=== PATIENT | female | born 1965 | race Caucasian/White ===

== ENCOUNTER 2016-05-18 17:24 | Observation (INO) | payer BC ==
[2016-05-18] MEDS ORDERED: NS 0.9% 1000 ML* 1,000 ML IV ONE (17:42)
[2016-05-18] MEDS ORDERED: Nitroglycerin TAB 0.4 MG* 0.4 MG TAB SL ONE (18:53)
[2016-05-18 20:43] LABS: Hematocrit 40 % (35-47); Hemoglobin 13.7 g/dl (12.0-16.0); Mean Corpuscular HGB Conc 34 g/dl (31-36); Mean Corpuscular Hemoglobin 31 pg (27-31); Mean Corpuscular Volume 92 fL (80-97); Mean Platelet Volume 9 um3 (7.4-10.4); Red Blood Count 4.38 10^6/ul (4.0-5.4); Red Cell Distribution Width 13 % (10.5-15); White Blood Count 7.2 10^3/ul (3.5-10.8)
[2016-05-18 20:53] LABS: Add Diff/Slide Review? Slide Review Added; Comments Flag Yes
[2016-05-18 20:58] LABS: Albumin 4.1 g/dL (3.2-5.2); BUN/Creatinine Ratio 18.9 (8-20); Calcium 9.5 mg/dL (8.6-10.3); EGFR African American 79.1 (>60); EGFR Non-African American 61.5 (>60); Globulin 2.9 g/dL (2-4); Potassium 3.4 mmol/L (3.5-5.0); Total Bilirubin 0.3 mg/dL (0.2-1.0)
[2016-05-18] MEDS ORDERED: Iohexol 350* (CONTRAST) 500 ML MDV IV ONE (21:20)
--- NOTE | 2016-05-18 21:25 | ED ---
Jessie Croft SooYoung, scribed for Lucas Gardner MD on 05/18/16 at 1848 . HPI Chest Pain - HPI Summary HPI Summary: A 51 y/o F presents to ED with c/o midline CP onset this AM. Radiates to back. Associated sx: SOB, dizziness. Denies: nausea, diaphoresis, pedal edema. Pt took 4 - 325mg Aspiring today.Describes the pain as a pressure, she states she' s never had a pain like this previously. Currently in ED, she rates pain as 5 to 6 out of 10. Aggravating factors: deep breaths. Alleviating factors: rest. Eating does not impact the pain. Believes her last stress test was 4 years ago. - History of Current Complaint Chief Complaint: EDChestPainROMI Time Seen by Provider: 05/18/16 18:39 Hx Obtained From: Patient Onset/Duration: Started Hours Ago, Still Present Timing: Constant, Lasting Hours Initial Severity: Moderate Current Severity: Moderate Pain Intensity: 7 - at onset Pain Scale Used: 0-10 Numeric Chest Pain Location: Mid Sternal Chest Pain Radiates: Yes Chest Pain Radiates To:: Back Character: Pressure/Squeezing Aggravating Factor(s): Deep Breaths Alleviating Factor(s): Rest Associated Signs and Symptoms: Positive: Dizziness, Shortness of Breath. Negative: Swelling, Diaphoresis, Nausea - Allergy/Home Medications Allergies/Adverse Reactions: Allergies Allergy/AdvReac Type Severity Reaction Status Date / Time No Known Allergies Allergy Verified 05/18/16 17:28 PMH/Surg Hx/FS Hx/Imm Hx Previously Healthy: Yes Sensory History: Denies: Hx Deafness Infectious Disease History: No Infectious Disease History: Denies: Traveled Outside the [place] in Last 30 Days - Family History Known Family History: Positive: Cardiac Disease, Hypertension - aunts Negative: Diabetes - Social History Occupation: Employed Full-time Lives: Alone Review of Systems Negative: Skin Diaphoresis Positive: Chest Pain Positive: Shortness Of Breath Negative: Nausea Negative: Edema Skin: Negative Neurological: Other - pos: dizzyness Psychological: Normal All Other Systems Reviewed And Are Negative: Yes Physical Exam - Summary Physical Exam Summary: Jasmin: well-appearing, no pain distress Skin: warm, skin color reflects adequate perfusion, dry Head/Face: nml head/face inspection Eyes: EOMI, REGINALDO ENT: nml Neck: supple, non-tender Resp: CTA, breath sounds present Cardio: RRR Abd: nontender, soft Bowel: present Musc: nml, strength/ROM intact Neuro: nml, sensory/motor intact, A&O x 3 Psych: affect/mood appropriate Triage Information Reviewed: Yes Vital Signs On Initial Exam: Initial Vitals Temp Pulse Resp BP Pulse Ox 97.7 F 91 16 147/90 100 05/18/16 17:28 05/18/16 17:28 05/18/16 17:28 05/18/16 17:28 05/18/16 17:28 Vital Signs Reviewed: Yes Diagnostics - Vital Signs Vital Signs Temp Pulse Resp BP Pulse Ox 05/18/16 18:23 97.7 F 75 16 131/81 100 05/18/16 17:28 97.7 F 91 16 147/90 100 - Laboratory Lab Results: Lab Results 05/18/16 05/18/16 05/18/16 Range/Units 20:30 20:30 20:30 WBC 7.2 (3.5-10.8) 10^3/ul RBC 4.38 (4.0-5.4) 10^6/ul Hgb 13.7 (12.0-16.0) g/dl Hct 40 (35-47) % MCV 92 (80-97) fL MCH 31 (27-31) pg MCHC 34 (31-36) g/dl RDW 13 (10.5-15) % Plt Count 253 (150-450) 10^3/ul MPV 9 (7.4-10.4) um3 Neut % (Auto) 56.2 (38-83) % Lymph % (Auto) 33.6 (25-47) % Harnett % (Auto) 6.8 (1-9) % Eos % (Auto) 1.0 (0-6) % Baso % (Auto) 2.4 H (0-2) % Absolute Neuts (auto) 4.0 (1.5-7.7) 10^3/ul Absolute Lymphs (auto) 2.4 (1.0-4.8) 10^3/ul Absolute Monos (auto) 0.5 (0-0.8) 10^3/ul Absolute Eos (auto) 0.1 (0-0.6) 10^3/ul Absolute Basos (auto) 0.2 (0-0.2) 10^3/ul Absolute Nucleated RBC 0.01 10^3/ul Nucleated RBC % 0.1 Sodium 135 (133-145) mmol/L Potassium 3.4 L (3.5-5.0) mmol/L Chloride 101 (101-111) mmol/L Carbon Dioxide 26 (22-32) mmol/L Anion Gap 8 (2-11) mmol/L BUN 18 (6-24) mg/dL Creatinine 0.95 (0.51-0.95) mg/dL Est GFR ( Amer) 79.1 (>60) Est GFR (Non-Af Amer) 61.5 (>60) BUN/Creatinine Ratio 18.9 (8-20) Glucose 101 H (70-100) mg/dL Lactic Acid 0.8 (0.5-2.0) mmol/L Calcium 9.5 (8.6-10.3) mg/dL Total Bilirubin 0.30 (0.2-1.0) mg/dL AST 17 (13-39) U/L ALT 18 (7-52) U/L Alkaline Phosphatase 65 (34-104) U/L Troponin I 0.00 (<0.04) ng/mL Total Protein 7.0 (6.4-8.9) g/dL Albumin 4.1 (3.2-5.2) g/dL Globulin 2.9 (2-4) g/dL Albumin/Globulin Ratio 1.4 (1-3) Lipase 36 (11.0-82.0) U/L Result Diagrams: 05/18/16 20:30 05/18/16 20:30 Lab Statement: Any lab studies that have been ordered have been reviewed, and results considered in the medical decision making process. - EKG 1 Cardiac Rate: NL EKG Rhythm: Sinus Rhythm - [address] Segment: Normal Ectopy: None Chest Pain Course/Dx - Course Assessment/Plan: DISPOSITION PENDING AT SHIFT CHANGE. - Diagnoses Provider Diagnoses: Chest pain Discharge - Discharge Plan Condition: Stable Disposition: OTHER Discharge Disposition Comment: C Referrals: Non Staff,Doctor [Primary Care Provider] - The documentation as recorded by the Jessie powell SooYoung accurately reflects the service I personally performed and the decisions made by me, Lucas Gardner MD.
[2016-05-18 21:31] LABS: Hypochromasia 1+; Macrocytosis 2+
--- NOTE | 2016-05-18 22:01 | RAD ---
Indication: Pleuritic chest pain. Contrast: Administered 67.0 ml of OMNIPAQUE 350 mgi/ml CTA of the chest was performed after IV contrast administration. Coronal and sagittal reconstructed images were obtained. The pulmonary arterial tree is well opacified. No evidence of filling defects are noted to suggest pulmonary embolus. Inferior thyroid lobes are unremarkable. No mediastinal or hilar adenopathy is noted. The heart demonstrates no pericardial effusion. Trachea and major bronchi appear patent. Lung duong demonstrate no evidence of pleural fluid, nodules or masses. No alveolar consolidation is noted. The visualized abdominal organs are unremarkable. The aortic arch demonstrates no evidence of aortic dissection or aneurysmal dilatation of the aorta. IMPRESSION: No evidence of pulmonary embolus is noted.
[2016-05-18] MEDS ORDERED: Aspirin TAB* 325 MG PO ONE (22:31)
--- NOTE | 2016-05-18 23:08 | ED ---
Patrice Croft Anna, scribed for Shanon Linder MD on 05/18/16 at 1749 . Progress - Progress Note Progress Note: Patient is a 51 y/o female coming to [facility] presenting with mid-sternal CP that began this morning at 0600. The pain radiates to her back. Additionally feels SOB because of the pain. She has had CP before related to anxiety, but this pain is not similar. She has taken four Aspirin today. No previous W[place], stents, respiratory history. FHx of W[place] in father and CVA in mother. History of HLD. Denies history of DVT or PE in herself or family. Denies recent travel and calf pain or tenderness. Course/Dx - Diagnoses Provider Diagnoses: Chest pain The documentation as recorded by the Patrice powell Anna accurately reflects the service I personally performed and the decisions made by me, Shanon Linder MD.
[2016-05-18] MEDS ORDERED: Acetaminophen TAB* 325 MG PO PRN (23:24)
[2016-05-18] MEDS ORDERED: Ondansetron INJ* 2 MG/ML VIAL IV PRN (23:24)
[2016-05-18] MEDS ORDERED: Ketorolac INJ* 30 MG/ML 1 ML VIAL ONE (23:24)
[2016-05-18] MEDS ORDERED: Ketorolac INJ* 30 MG/ML 1 ML VIAL IV PUSH ONE (23:24)
[2016-05-18] MEDS ORDERED: NS 0.9% 1000 ML* 1,000 ML IV SCH (23:30)
[2016-05-18] MEDS ORDERED: Potassium Chlor TAB* 20 MEQ TAB.ER PO ONE (23:39)
--- NOTE | 2016-05-18 23:50 | ED ---
douglas Croft Timothy, harshed for Trino Morel on 05/18/16 at 2234 . Progress - Progress Note Progress Note: Patient is a 51 y/o female coming to [facility] presenting with mid-sternal CP that began this morning at 0600. The pain radiates to her back. Additionally feels SOB because of the pain. She has had CP before related to anxiety, but this pain is not similar. She has taken four Aspirin today. No previous WV, stents, respiratory history. FHx of W[place] in father and CVA in mother. History of HLD. Denies history of DVT or PE in herself or family. Denies recent travel and calf pain or tenderness. Her CT Chest was negative, but she is still complaining of pain. After discussion with Dr. Sheikh, she will be admitted for stress test and further evaluation. Course/Dx - Course Course Of Treatment: Suellen Hicks is a 51 yo female presenting to [facility] with CP. Her CT chest/thorax was negative, but she still complains of CP. After discussion with Dr. Sheikh, she will be admoitted for further evaluation and possible stress test. - Diagnoses Provider Diagnoses: Chest pain - Provider Notifications Discussed Care Of Patient With: 2230 - Dr. Sheikh (hospitalist) - discussed Pt condition, agrees to admit Pt. Instructed by Provider To: Admit As Inpatient The documentation as recorded by the douglas powell Timothy accurately reflects the service I personally performed and the decisions made by me, Trino Morel.
[2016-05-18 23:55] LABS: C Reactive Protein 6.15 mg/L (< 5.00)
[2016-05-19 00:38] LABS: Erythrocyte Sed Rate 22 mm/Hr (0-30)
--- NOTE | 2016-05-19 00:43 | HP ---
HISTORY AND PHYSICAL: DATE OF ADMISSION: 05/18/16 PRIMARY CARE PROVIDER: Dr. Dahlia Zavala from [facility] in [place], [place]. ATTENDING PHYSICIAN: Kevan Sheikh MD * (dictated by Papa Ruano NP) CHIEF COMPLAINT: Chest pain. HISTORY OF PRESENT ILLNESS: Ms. Hicks is a 51-year-old female patient who has a history of hyperlipidemia and GERD, who takes Nexium only, who comes in today, states that she woke up this morning, she started having some pain in the center of her chest, and she went to work. She thought maybe it was related to anxiety but when she was at work, she described that she was having pain in the center of her chest, rather sharp pain radiating into her back, worse when taking a deep breath. It was constant and got progressively worse. She was at work and felt that she should be evaluated because she had a family history of heart disease. She does state that about 2 weeks ago, she did have recent URI symptoms. Her had cold symptoms, and she has had cold symptoms, cough, runny nose, no sore throat. She said these symptoms have gotten better. She denied having any fevers. There has been no abdominal pain. She had no associated symptoms of shortness of breath, nausea, diaphoresis, or radiation of the chest discomfort, and it was nonpositional. She was concerned, came to the ER, was evaluated. There was concern for acute coronary syndrome. Hospitalist service was asked to evaluate for admission. PAST MEDICAL HISTORY: Significant for: 1. Hyperlipidemia. 2. GERD. PAST SURGICAL HISTORY: She has had an L5 laminectomy. MEDICATIONS: Home medications include Nexium 40 mg p.o. daily. ALLERGIES: No known drug allergies. FAMILY HISTORY: Her mother had TIA, AFib. Father had a history of [place]. SOCIAL HISTORY: The patient is a nonsmoker. She has 2 glasses of wine daily. Surrogate decision maker is her significant other, [place]. REVIEW OF SYSTEMS: There is no documented fever. She denied having any significant weight change. There was no double vision. There is no ear discharge. Denies having any rhinorrhea. There is no sore throat. No thyroid enlargement. She did admit to chest pain from my HPI. There is no shortness of breath. No orthopnea, nocturnal dyspnea. There is no abdominal pain. No nausea, no vomiting. No dysuria, no frequency. No loss of consciousness. No pruritus and no skin ulcerations. Review of 14 systems completed, all others negative. PHYSICAL EXAMINATION GENERAL: At this time, Ms. Hicks is a 51-year-old female patient. She appears well nourished, well developed. She is sitting in the ER stretcher, does not appear to be in any acute distress. VITAL SIGNS: Reveal blood pressure 124/73 with a pulse of 77, respirations 18, O2 sat 95%, temperature 97.9. HEENT: Head is atraumatic, normocephalic. Eyes: EOMs intact. Sclerae anicteric, not pale. Throat: Oral mucosa appears to be moist. No oropharyngeal erythema. NECK: Supple. HEART: Heart sounds, S1, S2. Regular rate and rhythm. No murmurs, rubs, or gallops. LUNGS: Clear to auscultation bilaterally. No wheezes, rales, or rhonchi. ABDOMEN: Soft, flat, nontender. Bowel sounds present. EXTREMITIES: Pulses 2+ throughout. She was able to move all 4 extremities with 5/5 strength. NEUROLOGIC: The patient is awake, alert, oriented x3. Tongue midline. Washerette Machine Operator equal. No gross focal deficits. SKIN: Grossly intact. DIAGNOSTIC STUDIES/LAB DATA: Today revealed a WBC of 7.2, RBC of 4.38, hemoglobin 13.7, hematocrit of 40, platelet count 283. Sodium was 135, potassium was 3.4, chloride of 101, bicarb of 26, BUN 18, creatinine 0.95, glucose of 101, lactate of 0.8, calcium 9.5. Total bili 0.3, AST 17, ALT 18, alk phos 65. Troponin 0. CRP pending. Albumin 4.1. She had a chest thorax CTA, which revealed no evidence of pulmonary embolism is noted. EKG showed a normal sinus rhythm, rate of 60, no ST elevations or T-wave inversions were noted. No previous for comparison. Old medical records were reviewed. ASSESSMENT AND PLAN: Ms. Hicks is a 51-year-old female patient, coming into the ER today with complaints of chest pain. Hospitalist service was asked to evaluate for admission, as there was concern for acute coronary syndrome. She will be admitted under observation status for: 1. Chest pain. Again, the story is atypical for acute coronary syndrome. She does have risk factors, the most likely culprit is this is probably costochondritis or pleurisy. Given her family history, I think it is warranted to go ahead and check her troponins, check EKG in the morning. In addition to this, get lipids and A1c. Started her on aspirin. She got a full dose down here. Also, we will check a stress test in the morning as well and we will continue to follow. Should acute coronary syndrome be ruled out with stress test, then most likely, we will treat her chest pain with NSAIDs in the form of ibuprofen or naproxen, as this would be the treatment for costochondritis or pleurisy. 2. Hyperlipidemia. We will check lipid panel in the morning. 3. Gastroesophageal reflux disease. Continue PPI therapy. 4. DVT prophylaxis. She is at moderate risk. We will place her on heparin subcu. 5. Code status. Full code. 6. Fluids, electrolytes, nutrition. She can have a heart healthy diet, then n.p.o. after midnight. TIME SPENT: On the admission was 60 minutes, greater than half the time was spent [id number] with the patient, obtaining my history and physical, the other half time spent going over the plan of care with the patient, implementing plan of care. I did discuss the plan of care with my attending, Dr. Sheikh; he is in agreement. PAPA RUANO NP CC: Dr. Dahlia Zavala, [place], [place] [id number]/[facility] #: [id number] MTDD
[2016-05-19 05:18] LABS: Hematocrit 37 % (35-47); Hemoglobin 12.7 g/dl (12.0-16.0); Mean Corpuscular HGB Conc 34 g/dl (31-36); Mean Corpuscular Hemoglobin 31 pg (27-31); Mean Corpuscular Volume 92 fL (80-97); Mean Platelet Volume 9 um3 (7.4-10.4); Red Blood Count 4.07 10^6/ul (4.0-5.4); Red Cell Distribution Width 13 % (10.5-15); White Blood Count 5.5 10^3/ul (3.5-10.8)
[2016-05-19 05:31] LABS: BUN/Creatinine Ratio 14.7 (8-20); Calcium 8.5 mg/dL (8.6-10.3); EGFR African American 79.1 (>60); EGFR Non-African American 61.5 (>60); HDL Cholesterol 47.9 mg/dL
[2016-05-19] MEDS: Heparin VIAL(*) 5000 UNITS/ML VIAL (FIVE THOUSAND) SUBCUT SCH ×2 (05:34→16:19)
[2016-05-19] MEDS ORDERED: Aspirin Low Dose CHEW TAB* 81 MG PO SCH (09:00)
[2016-05-19] MEDS ORDERED: Omeprazole CAP* 20 MG PO SCH (09:00)
--- NOTE | 2016-05-19 14:27 | RAD ---
Edited for charges. INDICATION: Chest pain COMPARISON: None TECHNIQUE: A single day SPECT protocol was utilized. Rest images were acquired following the intravenous injection of 10.1 millicuries of technetium 99m tetrofosmin. Exercise stress images were acquired following the intravenous administration of 25.1 millicuries of technetium 99m tetrofosmin. The patient was exercised to a peak heart rate of 142 which is 85% of age predicted maximum. FINDINGS: There are no defects of the stress-induced or fixed nature. The cardiac chamber size is normal. There are no wall motion abnormalities. The ejection fraction is calculated at 79 percent during during stress. IMPRESSION: NO DEFECTS OR STRESS-INDUCED OR FIXED NATURE. ASSESSMENT: LOW-RISK Based on imaging criteria from ACC/AHA 2002 Guideline Update for the Management of Patients With Chronic Stable Angina Table 23. Noninvasive Risk Stratification. MTDD
[2016-05-19 16:24] VITALS: BP 136/87
--- NOTE | 2016-05-20 03:28 | DS ---
DISCHARGE SUMMARY: DATE OF ADMISSION: 05/18/16 DATE OF DISCHARGE: 05/19/16 DISCHARGE DIAGNOSES: 1. Chest pain, acute coronary syndrome ruled out. 2. Viral respiratory infection. SECONDARY DIAGNOSES: 1. Hyperlipidemia. 2. Gastroesophageal reflux disease. MEDICATION LIST: Nexium 40 mg p.o. daily. NEW MEDICATIONS: 1. Guaifenesin ER 600 mg p.o. twice a day for 5 days. 2. Ibuprofen 600 mg p.o. q.8 hours for 5 days. HOSPITAL COURSE: Ms. Hicks is a 51-year-old female lady with a past medical history as stated above that presented to the emergency room with complaints of chest pain that was described as a discomfort when taking a deep breath. She has recently had an upper respiratory infection and her also had similar symptoms but she felt she was getting a little better but still had some moist cough with no expectoration and feeling of "raspy" breath. No fever , chills, or other complaints. She called her PCP and was advised to come to the emergency room for further evaluation as she has a history of hyperlipidemia and family history of coronary artery disease. For more details about her presentation, I refer you to her history and physical. EKG showed no acute changes. A CTA of the chest showed no evidence of pulmonary embolus. There was no infiltrate or pleural fluid, nodules or masses. The patient underwent a nuclear medicine stress test that showed a calculated ejection fraction of 79% during stress and there was no defect of a stress- induced or fixed nature. The impression is that the patient probably has a viral respiratory infection. She is going to receive guaifenesin and ibuprofen for symptomatic treatment and she will follow up with her primary care provider next week. The patient was advised to return to the emergency room if her symptoms persist or worsened. PHYSICAL EXAMINATION: Vital Signs: Temperature 98.1, heart rate is 75, respiratory rate 16, oxygen saturation 97% on room air, blood pressure is 116/ 75. General: The patient is a pleasant lady, sitting up in bed, in no acute distress. CVS: Normal S1, S2. Regular rate and rhythm. Chest: Breath sounds bilaterally coarse, but no added sounds. Extremities: No edema. Neuro: She is alert, awake, and oriented x3. Able to move all 4 extremities. DIET: Regular diet. ACTIVITIES: As tolerated. DISPOSITION: To home. STATUS WHILE IN THE HOSPITAL: Observation. If you need more information, please feel free to call me at [phone] or please obtain the full medical records. TIME SPENT: Approximately 45 minutes were spent to complete this discharge. [id number]/[facility] #: [id number] TOBIN
== END 2016-05-19 16:43 | disposition home or self-care (01) ==
LOC: ED 17:24 → MEDTELE 23:20
PROVIDERS: ADMIT Internal Medicine; ATTEND Internal Medicine
DX: R07.9 Chest pain, unspecified (principal); E78.5 Hyperlipidemia, unspecified; K21.9 Gastro-esophageal reflux disease without esophagitis; J06.9 Acute upper respiratory infection, unspecified; Z82.3 Family history of stroke; Z84.89 Family history of other specified conditions; Z23 Encounter for immunization
CPT/HCPCS: 36415; 71275; 78452; 80048; 80053; 80061; 83036; 83605; 83690; 84484; 85025; 85610; 85652; 86140; 93005; 96374; 96375; 99283; A9270-GY; A9502; G0378; J1644; J1885; Q9967